=== PATIENT | female | born 2005 | race Caucasian/White ===

== ENCOUNTER 2024-01-21 23:06 | Emergency (ER) | payer OTHER ==
[2024-01-21 23:27] LABS: BASOPHILS ABSOLUTE AUTO 0.07 K/uL (0.00-0.10); BASOPHILS PERCENT AUTO 0.7 % (0.1-1.3); EOSINOPHILS ABSOLUTE AUTO 0.17 K/uL (0.00-0.40); EOSINOPHILS PERCENT AUTO 1.8 % (0.0-5.4); HEMATOCRIT 36.2 % (34.3-46.0); HEMOGLOBIN 12.5 g/dL (11.2-15.5); IMMATURE GRAN ABSOLUTE AUTO 0.15 K/uL (0.00-0.23); IMMATURE GRAN PERCENT AUTO 1.6 % (0.0-0.7); LYMPHOCYTES ABSOLUTE AUTO 2.93 K/uL (0.8-3.3); LYMPHOCYTES PERCENT AUTO 30.5 % (11.4-47.7); MEAN CORPUSCULAR HGB CONC 34.5 g/dL (31.6-35.5); MONOCYTES ABSOLUTE AUTO 0.82 K/uL (0.20-0.90); MONOCYTES PERCENT AUTO 8.5 % (3.3-12.6); NEUTROPHILS ABSOLUTE AUTO 5.48 K/uL (1.0-7.6); NEUTROPHILS PERCENT AUTO 56.9 % (40.0-78.1); PLATELET COUNT,PLT 260 K/uL (130-375); RED BLOOD CELL COUNT 4.31 M/uL (3.77-5.24); WHITE BLOOD CELL COUNT,WBC 9.6 K/uL (3.2-11.0)
[2024-01-21] MEDS ORDERED: Iopamidol 612 MG/ML 100 ML Bottle IV PRN (23:35)
[2024-01-21] MEDS ORDERED: Naloxone 0.4 MG/ML SDV IVPUSH PRN (23:42)
[2024-01-21 23:43] LABS: ANION GAP 17.4 mmol/L (5.0-14.0); BLOOD UREA NITROGEN,BUN 12 mg/dL (7-18); CALCIUM 8.8 mg/dL (8.5-10.1); CARBON DIOXIDE,CO2 23 mmol/L (21-32); CHLORIDE,CL 102 mmol/L (100-108); CREATININE 0.9 mg/dL (0.6-1.0); ESTIMATED GFR 94 mL/min (>60); GLUCOSE RANDOM 155 mg/dL (74-106); POTASSIUM,K 3.4 mmol/L (3.6-5.2); SODIUM,NA 139 mmol/L (140-148)
[2024-01-21] MEDS ORDERED: Sodium Chloride 0.9% 80 ML IV SCH (23:45)
[2024-01-22] MEDS: HYDROmorphone 0.5 MG/0.5 ML Syringe IVPUSH ONE ×2 (00:44→01:57)
[2024-01-22] MEDS: Ondansetron 4 MG/2 ML SDV IVPUSH ONE (00:52)
[2024-01-22] MEDS: Sodium Chloride 0.9% 1,000 ML IV SCH (01:34)
[2024-01-22] MEDS: Ondansetron 4 MG Tab.DIS PO ONE (04:21)
[2024-01-22] MEDS: Bacitracin Oint 1 GM U/D Packet TOP ONE (04:26)
[2024-01-22] MEDS: Ondansetron 4 MG Tab.DIS ONE (06:29)
== END 2024-01-22 04:42 | disposition home or self-care (01) ==
LOC: JP.ED 23:06
DX: S32.039A Unspecified fracture of third lumbar vertebra, initial encounter for closed fracture (principal); Z79.899 Other long term (current) drug therapy; V49.3XXA Car occupant (driver) (passenger) injured in unspecified nontraffic accident, initial encounter
CPT/HCPCS: 36415; 70450; 72125; 72128; 72131; 73080; 73600; 76377; 80048; 85025; 96374; 96375; 96376; 99284; 99285; J1170; J2405; J7030; Q0162